=== PATIENT | female | born 1950 | race Caucasian/White ===

== ENCOUNTER 2017-01-08 15:13 | Emergency (ER) | payer MEDICARE, OTHER ==
[~2017-01-08 15:13] MED LIST: APIX2.5T PO; ATOR40TA52 PO; CARV3.1240 PO; FURO80TA3 PO; LISI2.5T47 PO
[2017-01-08 15:18] VITALS: BP 106/65
[2017-01-08] MEDS ORDERED: KETOROLAC TROMETH 30 MG/ML 1ML VIAL IM ONE (18:45)
== END 2017-01-08 19:18 | disposition home or self-care (01) ==
LOC: ER 15:18
DX: S09.90XA Unspecified injury of head, initial encounter (principal); S63.502A Unspecified sprain of left wrist, initial encounter; S16.1XXA Strain of muscle, fascia and tendon at neck level, initial encounter; S00.03XA Contusion of scalp, initial encounter; M50.30 Other cervical disc degeneration, unspecified cervical region; S00.31XA Abrasion of nose, initial encounter; I50.9 Heart failure, unspecified; Z79.82 Long term (current) use of aspirin; Z91.040 Latex allergy status; W18.09XA Striking against other object with subsequent fall, initial encounter; Y93.01 Activity, walking, marching and hiking; Y99.8 Other external cause status; Y92.096 Garden or yard of other non-institutional residence as the place of occurrence of the external cause
CPT/HCPCS: 29125; 70450; 72040; 73110; 96372; 99284; J1885